=== PATIENT | male | born 2000 | race Caucasian/White ===

== ENCOUNTER 2022-11-03 06:23 | Emergency (ER) | payer BC ==
[~2022-11-03] VITALS: Ht 177.8 cm; Wt 61.0 kg
[2022-11-03 06:24] VITALS: BP 113/65
[2022-11-03] MEDS ORDERED: proparacaine 0.5% ophthalmic drops 15ml RIGHTEYE ONE ×2 (08:40→08:55)
[2022-11-03] MEDS ORDERED: ciprofloxacin 0.3% 2.5ml ophthalmic solution RIGHTEYE ONE ×2 (08:40→08:55)
[2022-11-03] MEDS ORDERED: CIPR2.5D12 RIGHTEYE (09:12)
== END 2022-11-03 09:26 | disposition home or self-care (01) ==
LOC: ER 06:23
DX: S05.01XA Injury of conjunctiva and corneal abrasion without foreign body, right eye, initial encounter (principal); Z88.1 Allergy status to other antibiotic agents; X58.XXXA Exposure to other specified factors, initial encounter; Y93.89 Activity, other specified; Y92.89 Other specified places as the place of occurrence of the external cause; Y99.8 Other external cause status
CPT/HCPCS: 99283